=== PATIENT | female | born 1955 | race Hispanic/Latino ===

== ENCOUNTER 2019-10-31 18:46 | Emergency (ER) | payer OTHER ==
[~2019-10-31 18:46] MED LIST: AMLO10TA7 PO; ATEN100T PO; GEMF600T5 PO; LEVO100T12 PO; TRAM50TA4 PO
[2019-10-31] MEDS ORDERED: TRAMADOL HCL 50 MG TABLET ONE (19:34)
== END 2019-10-31 21:00 | disposition home or self-care (01) ==
LOC: EDH 18:46
DX: S20.219A Contusion of unspecified front wall of thorax, initial encounter (principal); S40.012A Contusion of left shoulder, initial encounter; E11.9 Type 2 diabetes mellitus without complications; I10 Essential (primary) hypertension; E78.00 Pure hypercholesterolemia, unspecified; W18.39XA Other fall on same level, initial encounter; Y93.89 Activity, other specified; Y92.89 Other specified places as the place of occurrence of the external cause; Y99.8 Other external cause status
CPT/HCPCS: 71046; 73030; 73060; 93005

== ENCOUNTER 2020-07-27 16:13 | Inpatient (IN) | payer OTHER ==
[~2020-07-27] VITALS: Ht 165.1 cm; Wt 67.4 kg
[~2020-07-27 16:13] MED LIST changes: +AMLO-258 PO; -AMLO10TA7 PO
[2020-07-27] MEDS ORDERED: DEXTROSE 50%-WATER 50 ML DISP.SYRIN IV ONE (17:05)
[2020-07-27 17:23] LABS: BASOPHILS % (AUTO) 0.4 % (0.0-5.0); EOSINOPHILS % (AUTO) 0.8 % (0.0-8.0); HEMATOCRIT 33.6 % (36-48); LYMPHOCYTES % (AUTO) 31.6 % (21.0-51.0); MEAN CORPUSCULAR HEMOGLOBIN 27.6 pg (27.0-33.0); MEAN CORPUSCULAR VOLUME 89.1 fL (79-99); MONOCYTES % (AUTO) 9.4 % (3.0-13.0); NEUTROPHILS % (AUTO) 57.5 % (40.0-77.0); PLATELET COUNT (AUTO) 567 K/uL (130-400); RED BLOOD CELL COUNT(AUTO) 3.77 MIL/uL (4.00-5.50)
[2020-07-27 17:47] LABS: ALBUMIN 3.3 g/dL (3.5-5.0); BILIRUBIN,TOTAL 0.2 mg/dL (0.2-1.0); CREATININE 1.8 mg/dL (0.5-1.5); POTASSIUM 3.7 mmol/L (3.5-5.1); TOTAL PROTEIN, SERUM 8.3 g/dL (6.0-8.3)
[2020-07-27 18:52] LABS: ERYTHROCYTE SEDIMENTATION RATE 125 MM/HR (0-30)
[2020-07-27] MEDS ORDERED: SODIUM CHLORIDE 0.9% 1000ML 1,000 ML IV SCH (22:45)
[2020-07-27] MEDS ORDERED: MORPHINE SULFATE 2 MG/ML 1ML SYG IV PRN (22:45)
[2020-07-27] MEDS ORDERED: ACETAMINOPHEN 325 MG TAB PO PRN (22:45)
[2020-07-27] MEDS ORDERED: ONDANSETRON HCL 4 MG/2 ML VIAL IV PRN (22:45)
[2020-07-27 23:47] LABS: HEMOGLOBIN A1C 10.8 % (4.0-6.0)
[2020-07-27 23:51] LABS: % IRON SATURATION 19.5 % (22-44)
[2020-07-28] MEDS ORDERED: FAMOTIDINE/PF 20 MG/2 ML VIAL IV ONE (00:26)
[2020-07-28] MEDS ORDERED: ZOSYN 3.375GM+NS 50ML 50 ML IV ONE (02:17)
[2020-07-28] MEDS: ZOSYN 3.375GM+NS 50ML 50 ML IV SCH ×3 (02:26→21:37)
[2020-07-28 02:45] VITALS: BP 143/62
[2020-07-28] MEDS ORDERED: HUM10VIA SQ (02:54)
[2020-07-28] MEDS ORDERED: ROSU40TA21 PO (02:54)
[2020-07-28] MEDS ORDERED: PIOG45TA4 PO (02:54)
[2020-07-28] MEDS ORDERED: LISI40TA4 PO (02:54)
[2020-07-28] MEDS ORDERED: SITA1TAB6 PO (02:54)
--- NOTE | 2020-07-28 02:55 | NUR ---
ADMISSION NOTE ADMIT TO ROOM 404 VIA STRETCHER FROM ER. PATIENT AWAKE, ALERT, OX3, NO SOB NO C/O PAIN AT THIS TIME, TEACH PATIENT PLAN OF CARE AND EXPECTED OUTCOME, PATIENT VERBALIZES UNDERSTANDING VIA TEACH BACK
[2020-07-28] MEDS ORDERED: DEXTROSE 5%-WATER 1,000 ML IV SCH (03:30)
[2020-07-28 06:25] LABS: BASOPHILS % (AUTO) 0.5 % (0.0-5.0); EOSINOPHILS % (AUTO) 1.5 % (0.0-8.0); HEMATOCRIT 32.7 % (36-48); LYMPHOCYTES % (AUTO) 30.2 % (21.0-51.0); MEAN CORPUSCULAR HEMOGLOBIN 27.2 pg (27.0-33.0); MEAN CORPUSCULAR HGB CONC 30.3 g/dL (32.0-36.0); MEAN CORPUSCULAR VOLUME 89.8 fL (79-99); MONOCYTES % (AUTO) 10.5 % (3.0-13.0); PLATELET COUNT (AUTO) 522 K/uL (130-400); RED BLOOD CELL COUNT(AUTO) 3.64 MIL/uL (4.00-5.50); RED CELL DISTRIBUTION WIDTH 14.3 % (11.0-15.5)
[2020-07-28 06:38] LABS: BILIRUBIN,TOTAL 0.3 mg/dL (0.2-1.0); CREATININE 1.8 mg/dL (0.5-1.5); POTASSIUM 4.6 mmol/L (3.5-5.1); TOTAL PROTEIN, SERUM 7.6 g/dL (6.0-8.3)
[2020-07-28 08:34] VITALS: BP 152/75
[2020-07-28] MEDS: FAMOTIDINE/PF 20 MG/2 ML VIAL IV SCH ×2 (09:24→21:37)
[2020-07-28] MEDS: HEPARIN SODIUM 5000UNIT/ML 1ML VIAL SQ SCH ×2 (09:25→21:39)
[2020-07-28] MEDS: INSULIN LISPRO 100 UNIT/ML 3ML SQ SCH ×3 (11:30→21:00)
--- NOTE | 2020-07-28 14:36 | NUR ---
RD NOTIFICATION Pt admitted due to foot ulcer and diabetes. Pt stated her PO intake was low prior to admission. Pt denied any unintentional recent weight loss. Pt is on an insulin regimen and tends to take her insulin with poor PO intake, which has resulted in low blood sugars. Pt's A1c is of 10.8 with an average BG of 263 as per EMR. Pt is on a 75 gm CC diet. Pt's breakfast tray was evident of 75-100% PO intake. RD recommendation: Add Heart Healthy modifier to current diet order. RD to follow with DM education. Monitor PO intake. If PO intake is <75% consider ProMod 60 ml BID. LABS: BUN 21, CREAT 1.8, GFR 30, BG 67, BG ON ADMISSION (07/27/20) 43, A1C 10.8, AVG BG 263, ALB 3.0, TOT PRO 7.6, CRP 27, IRON 62, TIBC 317, %SAT 19.5 RD will continue to monitor. As nutritional concerns arise contact dietary. Addendum: 07/28/20 at [address] Amended: Links added.
--- NOTE | 2020-07-28 15:30 | NUR ---
DEXTROSE STOPPED BS 312
[2020-07-28 16:18] VITALS: BP 126/55
--- NOTE | 2020-07-28 16:45 | NUR ---
MET W/ PATIENT AT BEDSIDE TO DISCUSS D/C PLANNING. LIVES ALONE , USES A CANE, WANTS A ROLLING WALKER, IS INDEPENDENT IN ALL ADLS, PATIENT STATES JOVITA ABREU WILL PROVIDE TRANSPORT HOME FOLLOWS AT [facility] Addendum: 07/28/20 at 1650 by BEATRIZ MALDONADO RN CM Amended: Links added.
--- NOTE | 2020-07-28 18:00 | NUR ---
BS BS 212 RECHECK IN 2HOURS
[2020-07-28 20:38] VITALS: BP 100/61
[2020-07-28] MEDS ORDERED: INSULIN GLARGINE 100 UNITS/ML 10 ML VIAL SQ SCH (21:00)
[2020-07-28 23:03] VITALS: BP 151/75
[2020-07-29 03:06] VITALS: BP 136/73
[2020-07-29] MEDS: ZOSYN 3.375GM+NS 50ML 50 ML IV SCH ×3 (05:00→20:40)
[2020-07-29 05:14] LABS: BASOPHILS % (AUTO) 1.9 % (0.0-5.0); EOSINOPHILS % (AUTO) 3.9 % (0.0-8.0); HEMATOCRIT 31.4 % (36-48); LYMPHOCYTES % (AUTO) 46.2 % (21.0-51.0); MEAN CORPUSCULAR HEMOGLOBIN 27.4 pg (27.0-33.0); MEAN CORPUSCULAR HGB CONC 30.6 g/dL (32.0-36.0); MEAN CORPUSCULAR VOLUME 89.5 fL (79-99); MONOCYTES % (AUTO) 9.4 % (3.0-13.0); NEUTROPHILS % (AUTO) 38.4 % (40.0-77.0); PLATELET COUNT (AUTO) 477 K/uL (130-400); RED BLOOD CELL COUNT(AUTO) 3.51 MIL/uL (4.00-5.50); RED CELL DISTRIBUTION WIDTH 14.5 % (11.0-15.5); WHITE BLOOD COUNT (AUTO) 4.1 K/uL (4.8-10.8)
[2020-07-29 05:21] LABS: CREATININE 1.6 mg/dL (0.5-1.5); POTASSIUM 4.3 mmol/L (3.5-5.1)
[2020-07-29] MEDS: INSULIN LISPRO 100 UNIT/ML 3ML SQ SCH ×4 (07:22→21:00)
[2020-07-29] MEDS: LEVOTHYROXINE 100 MCG TABLET PO SCH (07:25)
[2020-07-29] MEDS ORDERED: SODIUM CHLORIDE 0.9% 500ML 500 ML IV SCH (07:45)
[2020-07-29 08:00] VITALS: BP 145/70
[2020-07-29 08:31] LABS: HEMATOCRIT 31.4 % (36-48); MEAN CORPUSCULAR HEMOGLOBIN 27.6 pg (27.0-33.0); MEAN CORPUSCULAR HGB CONC 30.9 g/dL (32.0-36.0); MEAN CORPUSCULAR VOLUME 89.5 fL (79-99); RED BLOOD CELL COUNT(AUTO) 3.51 MIL/uL (4.00-5.50); RED CELL DISTRIBUTION WIDTH 14.5 % (11.0-15.5); WHITE BLOOD COUNT (AUTO) 4.6 K/uL (4.8-10.8)
[2020-07-29 08:46] LABS: INR 0.92 (0.85-1.15); PARTIAL THROMBOPLASTIN TIME 25.9 SEC (26.3-35.5)
--- NOTE | 2020-07-29 09:00 | NUR ---
CALL TO 'S OFFICE T/C PLACED TO DR. GRIMES'S OFFICE SPOKE WITH PATRICIA, INFORMED OF NEW CONSULT. WILL PAGE. GAVE HER NURSE'S [employer] PHONE NUMBER.
[2020-07-29] MEDS: FAMOTIDINE/PF 20 MG/2 ML VIAL IV SCH ×2 (09:23→20:40)
[2020-07-29] MEDS: HEPARIN SODIUM 5000UNIT/ML 1ML VIAL SQ SCH ×2 (09:31→20:57)
[2020-07-29 12:00] VITALS: BP 126/76
--- NOTE | 2020-07-29 13:06 | NUR ---
RD TEACHING NOTE DM education conducted 07/29/20. Pt was interacting and asked questions. All questions were answered. Pt was given educational material in her [place] language. Pt was encouraged to eat measure her carbohydrate choices at home and to monitor her blood sugars. RD will continue to follow Contact dietary as nutritional concerns arise. Thank you. Addendum: 07/29/20 at [address] Amended: Links added.
[2020-07-29 13:51] LABS: APPEARANCE,URINE Clear (CLEAR); BILIRUBIN,URINE Negative (NEGATIVE); COLOR,URINE Yellow (YELLOW); GLUCOSE, URINE (UA) >=1000 mg/dL (NEGATIVE); KETONES,URINE Negative (NEGATIVE); LEUKOCYTE ESTERASE ,URINE Trace (NEGATIVE); NITRATE,URINE Negative (NEGATIVE); OCCULT BLOOD,URINE Negative (NEGATIVE); PROTEIN,URINE Negative (NEGATIVE); UROBILINOGEN,URINE 0.2 mg/dL (0.2-1.0)
[2020-07-29 14:21] LABS: BACTERIA,URINE Few /HPF (None Seen)
[2020-07-29 14:22] LABS: RBC,URINE 0-1 /HPF (0-1); YEAST,URINE BUDDING Few /HPF (None Seen)
[2020-07-29 16:00] VITALS: BP 157/72
--- NOTE | 2020-07-29 16:45 | NUR ---
WOUND CONSULT DR JIMENEZ WOUND CONSULTED. REQUESTS TO BE TAKEN OFF THE CARE DUE TO PT ALREADY HAVING [facility] INVOLOVED.
[2020-07-29] MEDS: DIPH,PERTUSS(ACELL),TET VAC/PF 0.5 ML VIAL IM SCH (17:13)
[2020-07-29 19:20] VITALS: BP 149/67
--- NOTE | 2020-07-29 20:00 | NUR ---
PATIENT RESTING IN BED. DENIES PAIN TO LE. DRESSING CDI. TOLERATING IV ABX. NO S/S OF ADVERSE REACTIONS. CALL LIGHT WITHIN REACH. WILL CONTINUE TO MONITOR.
[2020-07-29] MEDS: INSULIN GLARGINE 100 UNITS/ML 10 ML VIAL SQ SCH (21:00)
[2020-07-29 23:42] VITALS: BP 148/81
[2020-07-30 03:40] VITALS: BP 153/69
[2020-07-30] MEDS: INSULIN LISPRO 100 UNIT/ML 3ML SQ SCH ×6 (06:03→20:30)
[2020-07-30 06:11] LABS: EOSINOPHILS % (AUTO) 4.5 % (0.0-8.0); HEMATOCRIT 32.1 % (36-48); LYMPHOCYTES % (AUTO) 47.3 % (21.0-51.0); MEAN CORPUSCULAR HEMOGLOBIN 27.5 pg (27.0-33.0); MEAN CORPUSCULAR HGB CONC 30.8 g/dL (32.0-36.0); MEAN CORPUSCULAR VOLUME 89.2 fL (79-99); PLATELET COUNT (AUTO) 508 K/uL (130-400); RED CELL DISTRIBUTION WIDTH 14.3 % (11.0-15.5); WHITE BLOOD COUNT (AUTO) 4.9 K/uL (4.8-10.8)
[2020-07-30] MEDS: LEVOTHYROXINE 100 MCG TABLET PO SCH (06:23)
[2020-07-30] MEDS: ZOSYN 3.375GM+NS 50ML 50 ML IV SCH ×3 (06:23→20:27)
[2020-07-30 06:26] LABS: CREATININE 1.4 mg/dL (0.5-1.5); POTASSIUM 4.5 mmol/L (3.5-5.1)
[2020-07-30 08:00] VITALS: BP 147/85
[2020-07-30] MEDS: FAMOTIDINE/PF 20 MG/2 ML VIAL IV SCH ×2 (08:44→20:27)
[2020-07-30] MEDS: HEPARIN SODIUM 5000UNIT/ML 1ML VIAL SQ SCH ×2 (08:45→20:29)
[2020-07-30 12:00] VITALS: BP 169/80
[2020-07-30] MEDS: DIPH,PERTUSS(ACELL),TET VAC/PF 0.5 ML VIAL IM SCH (14:00)
[2020-07-30 16:00] VITALS: BP 166/75
[2020-07-30 19:47] VITALS: BP 170/79
[2020-07-30] MEDS: NIFEDIPINE 10 MG CAP PO SCH (20:28)
[2020-07-30] MEDS: INSULIN GLARGINE 100 UNITS/ML 10 ML VIAL SQ SCH (20:30)
[2020-07-30 23:55] VITALS: BP 128/74
[2020-07-31 04:21] VITALS: BP 130/56
[2020-07-31] MEDS: ZOSYN 3.375GM+NS 50ML 50 ML IV SCH ×3 (04:24→21:05)
[2020-07-31] MEDS: LEVOTHYROXINE 100 MCG TABLET PO SCH (05:49)
[2020-07-31 06:17] LABS: BASOPHILS % (AUTO) 1.7 % (0.0-5.0); EOSINOPHILS % (AUTO) 5.4 % (0.0-8.0); HEMATOCRIT 31.8 % (36-48); LYMPHOCYTES % (AUTO) 50.9 % (21.0-51.0); MEAN CORPUSCULAR HEMOGLOBIN 27.5 pg (27.0-33.0); MEAN CORPUSCULAR HGB CONC 30.8 g/dL (32.0-36.0); MEAN CORPUSCULAR VOLUME 89.3 fL (79-99); MONOCYTES % (AUTO) 6.9 % (3.0-13.0); NEUTROPHILS % (AUTO) 34.9 % (40.0-77.0); PLATELET COUNT (AUTO) 467 K/uL (130-400); RED BLOOD CELL COUNT(AUTO) 3.56 MIL/uL (4.00-5.50); WHITE BLOOD COUNT (AUTO) 4.8 K/uL (4.8-10.8)
[2020-07-31] MEDS: INSULIN LISPRO 100 UNIT/ML 3ML SQ SCH ×7 (06:38→21:12)
[2020-07-31 06:44] LABS: BILIRUBIN,TOTAL 0.3 mg/dL (0.2-1.0); CREATININE 1.4 mg/dL (0.5-1.5); POTASSIUM 3.9 mmol/L (3.5-5.1); TOTAL PROTEIN, SERUM 7.6 g/dL (6.0-8.3)
[2020-07-31] MEDS: DIPH,PERTUSS(ACELL),TET VAC/PF 0.5 ML VIAL IM SCH (07:22)
[2020-07-31 08:00] VITALS: BP 139/60
[2020-07-31] MEDS: NIFEDIPINE 10 MG CAP PO SCH ×3 (08:23→21:06)
[2020-07-31] MEDS: FAMOTIDINE/PF 20 MG/2 ML VIAL IV SCH ×2 (08:23→21:06)
[2020-07-31] MEDS: HEPARIN SODIUM 5000UNIT/ML 1ML VIAL SQ SCH ×2 (08:28→21:12)
[2020-07-31 11:48] VITALS: BP 136/65
[2020-07-31] MEDS: ACETYLCYSTEINE 600 MG CAPSULE PO SCH ×2 (15:40→21:05)
[2020-07-31 16:00] VITALS: BP 119/61
[2020-07-31 20:25] VITALS: BP 131/63
--- NOTE | 2020-07-31 21:05 | NUR ---
MEDS SHIFT ASSESSMENT DONE, PLEASE REFER TO CHART. DUE MEDS ADMINISTERED, TOLERATED WELL.INSTRUCTED TO BE NPO POST MN. PT VERBALIZES UNDERSTANDING. CALL LIGHT WITHIN REACH. WILL MONITOR PT. Addendum: 07/31/20 at 2226 by JOHNNY VALDES RN RN Amended: Links added.
[2020-07-31] MEDS: INSULIN GLARGINE 100 UNITS/ML 10 ML VIAL SQ SCH (21:11)
[2020-07-31 23:49] VITALS: BP 140/71
[2020-08-01] VITALS (11 sets, daily range): BP systolic 123–147; BP diastolic 53–78
--- NOTE | 2020-08-01 01:44 | NUR ---
ROUNDS PT RESTING WELL, FAIRLY ASLEEP. NO DISTRESS NOTED. KEPT RESTED AND UNDISTURBED. KEPT NPO. WILL CONTINUE TO MONITOR. CALL LIGHT WITHIN REACH.
[2020-08-01] MEDS: ZOSYN 3.375GM+NS 50ML 50 ML IV SCH ×3 (04:43→20:16)
--- NOTE | 2020-08-01 04:55 | NUR ---
MEDS POLICY DIRECTOR IN TO DRAW BLOOD. IVF OF NS AND ZOSYN IV HUNG WITH NEW TUBINGS. SECOND PIV INSERTED TO LAC,FOR PROCEDURE, SALINE LOCKED. PT TOLERATED INSERTION WELL. KEPT PT NPO. KEPT COMFORTABLE. FOR MORE CARE.
[2020-08-01 04:57] LABS: BASOPHILS % (AUTO) 1.8 % (0.0-5.0); EOSINOPHILS % (AUTO) 6.4 % (0.0-8.0); HEMATOCRIT 32.4 % (36-48); LYMPHOCYTES % (AUTO) 53.5 % (21.0-51.0); MEAN CORPUSCULAR HEMOGLOBIN 27.3 pg (27.0-33.0); MEAN CORPUSCULAR HGB CONC 30.6 g/dL (32.0-36.0); MEAN CORPUSCULAR VOLUME 89.3 fL (79-99); MONOCYTES % (AUTO) 6.8 % (3.0-13.0); NEUTROPHILS % (AUTO) 31.3 % (40.0-77.0); PLATELET COUNT (AUTO) 447 K/uL (130-400); RED BLOOD CELL COUNT(AUTO) 3.63 MIL/uL (4.00-5.50); RED CELL DISTRIBUTION WIDTH 14.1 % (11.0-15.5); WHITE BLOOD COUNT (AUTO) 5.1 K/uL (4.8-10.8)
[2020-08-01 05:15] LABS: INR 0.92 (0.85-1.15); PARTIAL THROMBOPLASTIN TIME 25.2 SEC (26.3-35.5)
[2020-08-01 05:33] LABS: CARBON DIOXIDE 27 mmol/L (21-32); CHLORIDE 102 mmol/L (101-111); CREATINE KINASE, TOTAL 30 U/L (21-232); CREATININE 1.4 mg/dL (0.5-1.5); GLOMERULAR FILTR. RATE CALC 40 mL/min (>60); GLUCOSE,RANDOM 163 mg/dL (70-105); MYOGLOBIN 27 ng/mL (10-92); POTASSIUM 3.8 mmol/L (3.5-5.1); SODIUM SERUM 136 mmol/L (136-145); TROPONIN I < 0.04 ng/mL (0.00-0.06); UREA NITROGEN, BLOOD 16 mg/dL (7-18)
[2020-08-01] MEDS: LEVOTHYROXINE 100 MCG TABLET PO SCH (06:18)
[2020-08-01] MEDS: INSULIN LISPRO 100 UNIT/ML 3ML SQ SCH ×8 (06:29→20:19)
[2020-08-01] MEDS: NIFEDIPINE 10 MG CAP PO SCH ×3 (08:33→20:17)
[2020-08-01] MEDS: ACETYLCYSTEINE 600 MG CAPSULE PO SCH ×2 (08:34→20:17)
[2020-08-01] MEDS: HEPARIN SODIUM 5000UNIT/ML 1ML VIAL SQ SCH ×2 (08:34→20:18)
[2020-08-01] MEDS: FAMOTIDINE/PF 20 MG/2 ML VIAL IV SCH ×2 (08:34→20:17)
[2020-08-01] MEDS ORDERED: SODIUM CHLORIDE 0.9% 500ML 1,000 ML IV SCH (09:00)
[2020-08-01] MEDS ORDERED: HEPARIN SODIUM 1000UNIT/ML 10ML VIAL ONE (09:26)
[2020-08-01] MEDS ORDERED: NITROGLYCERIN 2 MG/VIAL VIAL IV ONE (09:26)
[2020-08-01] MEDS ORDERED: IODIXANOL 320 MG/ML 100 ML VIAL ONE (09:26)
[2020-08-01] MEDS ORDERED: MIDAZOLAM HCL 1 MG/ML 2ML VIAL ONE (09:27)
[2020-08-01] MEDS ORDERED: FENTANYL CITRATE PF 50 MCG/1 ML 2ML VIAL ONE (09:27)
[2020-08-01] MEDS ORDERED: LIDOCAINE HCL 2% 20ML ONE (09:27)
[2020-08-01] MEDS ORDERED: SODIUM CHLORIDE 0.9% 1000ML 1,000 ML IV SCH (10:45)
[2020-08-01] MEDS ORDERED: ASPIRIN 325MG EC TAB 325 MG TABLET.DR PO ONE (10:58)
[2020-08-01] MEDS ORDERED: CLOPIDOGREL BISULFATE 300 MG TAB ONE (10:59)
[2020-08-01] MEDS: ATORVASTATIN CALCIUM 40 MG TABLET PO SCH (13:45)
[2020-08-01] MEDS: DIPH,PERTUSS(ACELL),TET VAC/PF 0.5 ML VIAL IM SCH (14:00)
[2020-08-01] MEDS: INSULIN GLARGINE 100 UNITS/ML 10 ML VIAL SQ SCH (20:19)
--- NOTE | 2020-08-01 20:20 | NUR ---
MEDS SHIFT ASSESSMENT DONE, PLEASE REFER TO CHART. DUE MEDS ADMINISTERED, TOLERATED WELL. KEPT COMFORTABLE IN BED. CALL LIGHT WITHIN REACH. WILL MONITOR PT. Addendum: 08/01/20 at 2145 by JOHNNY VALDES RN RN Amended: Links added.
[2020-08-02] VITALS (20 sets, daily range): BP systolic 134–182; BP diastolic 54–118
--- NOTE | 2020-08-02 02:00 | NUR ---
ROUNDS PT RESTING WELL, FAIRLY ASLEEP. NO DISTRESS NOTED. KEPT RESTED AND COMFORTABLE. CALL LIGHT WITHIN REACH. WILL CONTINUE TO MONITOR.
[2020-08-02 03:51] LABS: BASOPHILS % (AUTO) 1.2 % (0.0-5.0); EOSINOPHILS % (AUTO) 5.3 % (0.0-8.0); HEMATOCRIT 31.3 % (36-48); LYMPHOCYTES % (AUTO) 39.4 % (21.0-51.0); MEAN CORPUSCULAR HEMOGLOBIN 27.5 pg (27.0-33.0); MEAN CORPUSCULAR HGB CONC 30.7 g/dL (32.0-36.0); MEAN CORPUSCULAR VOLUME 89.7 fL (79-99); MONOCYTES % (AUTO) 7.4 % (3.0-13.0); NEUTROPHILS % (AUTO) 46.5 % (40.0-77.0); PLATELET COUNT (AUTO) 425 K/uL (130-400); RED BLOOD CELL COUNT(AUTO) 3.49 MIL/uL (4.00-5.50); RED CELL DISTRIBUTION WIDTH 14.4 % (11.0-15.5); WHITE BLOOD COUNT (AUTO) 6.1 K/uL (4.8-10.8)
[2020-08-02] MEDS: ZOSYN 3.375GM+NS 50ML 50 ML IV SCH ×3 (04:03→19:58)
[2020-08-02 04:09] LABS: CREATININE 1.3 mg/dL (0.5-1.5)
[2020-08-02] MEDS: INSULIN LISPRO 100 UNIT/ML 3ML SQ SCH ×7 (05:41→20:39)
[2020-08-02] MEDS: LEVOTHYROXINE 100 MCG TABLET PO SCH (05:41)
--- NOTE | 2020-08-02 05:43 | NUR ---
NPO DR KELLY IN TO SEE PT. PROOF INSPECTOR MADE AWARE OF NEW ORDERS, STATED TO PLACE PT NPO FOR SX TODAY. PT MADE AWARE AND UNDERSTANDS NPO STATUS. PLEASE REFER TO CPOE FOR NEW ORDERS.
--- NOTE | 2020-08-02 06:15 | NUR ---
SHOWER PCP IN AND ASSISTED PT TO SHOWER, PT TOLERATED ACTIVITY WELL. KEPT NPO FOR SX. FOR MORE CARE AND MANAGEMENT.
[2020-08-02] MEDS: ATORVASTATIN CALCIUM 40 MG TABLET PO SCH (09:00)
[2020-08-02] MEDS: CLOPIDOGREL BISULFATE 75 MG TAB PO SCH (09:00)
[2020-08-02] MEDS: ASPIRIN 81 MG EC TAB PO SCH (09:00)
[2020-08-02] MEDS: ACETYLCYSTEINE 600 MG CAPSULE PO SCH ×2 (09:00→19:57)
[2020-08-02] MEDS: HEPARIN SODIUM 5000UNIT/ML 1ML VIAL SQ SCH ×2 (09:00→20:00)
[2020-08-02] MEDS: NIFEDIPINE 10 MG CAP PO SCH ×3 (10:19→19:57)
[2020-08-02] MEDS: FAMOTIDINE/PF 20 MG/2 ML VIAL IV SCH ×2 (10:19→19:58)
[2020-08-02] MEDS: DIPH,PERTUSS(ACELL),TET VAC/PF 0.5 ML VIAL IM SCH (14:00)
[2020-08-02] MEDS ORDERED: SODIUM CHLORIDE 0.9% 1000ML 1,000 ML IV ONE (14:01)
[2020-08-02] MEDS ORDERED: MIDAZOLAM HCL 1 MG/ML 2ML VIAL ONE (16:09)
[2020-08-02] MEDS ORDERED: FENTANYL CITRATE PF 50 MCG/1 ML 2ML VIAL ONE (16:09)
[2020-08-02] MEDS ORDERED: PROPOFOL 10 MG/ML 20ML VIAL IV ONE ×2 (16:18→16:59)
[2020-08-02] MEDS ORDERED: BUPIVACAINE/PF 0.5% 30ML VIAL ONE (16:19)
[2020-08-02] MEDS ORDERED: LIDOCAINE HCL 1% 20 ML VIAL ONE (16:19)
[2020-08-02] MEDS ORDERED: PHARMACY COMMUNICATION MISC SCH (18:00)
--- NOTE | 2020-08-02 19:00 | NUR ---
CARE Received in bed,pt aao x 3,denies pain or discomfort.Dressing to left foot dry and intact.Pt has surgical shoe on.
[2020-08-02] MEDS: INSULIN GLARGINE 100 UNITS/ML 10 ML VIAL SQ SCH (20:39)
[2020-08-02] MEDS ORDERED: CLOPIDOGREL BISULFATE 75 MG TAB PO ONE (21:00)
[2020-08-02] MEDS ORDERED: ASPIRIN 81 MG EC TAB PO ONE (21:00)
[2020-08-03 03:23] VITALS: BP 132/67
[2020-08-03] MEDS: LEVOTHYROXINE 100 MCG TABLET PO SCH (04:56)
[2020-08-03] MEDS: ZOSYN 3.375GM+NS 50ML 50 ML IV SCH (04:56)
[2020-08-03] MEDS: INSULIN LISPRO 100 UNIT/ML 3ML SQ SCH ×7 (05:49→20:28)
[2020-08-03 06:11] LABS: BASOPHILS % (AUTO) 1.1 % (0.0-5.0); EOSINOPHILS % (AUTO) 3.6 % (0.0-8.0); HEMATOCRIT 32.7 % (36-48); LYMPHOCYTES % (AUTO) 31.8 % (21.0-51.0); MEAN CORPUSCULAR HEMOGLOBIN 27.5 pg (27.0-33.0); MEAN CORPUSCULAR HGB CONC 30.9 g/dL (32.0-36.0); MEAN CORPUSCULAR VOLUME 89.1 fL (79-99); MONOCYTES % (AUTO) 10.4 % (3.0-13.0); NEUTROPHILS % (AUTO) 52.9 % (40.0-77.0); PLATELET COUNT (AUTO) 402 K/uL (130-400); RED BLOOD CELL COUNT(AUTO) 3.67 MIL/uL (4.00-5.50); RED CELL DISTRIBUTION WIDTH 14.3 % (11.0-15.5); WHITE BLOOD COUNT (AUTO) 6.4 K/uL (4.8-10.8)
[2020-08-03 06:20] LABS: CREATININE 1.2 mg/dL (0.5-1.5); POTASSIUM 3.8 mmol/L (3.5-5.1)
[2020-08-03 08:00] VITALS: BP 170/75
[2020-08-03] MEDS: ASPIRIN 81 MG EC TAB PO SCH (08:38)
[2020-08-03] MEDS: ACETYLCYSTEINE 600 MG CAPSULE PO SCH ×2 (08:38→20:12)
[2020-08-03] MEDS: ATORVASTATIN CALCIUM 40 MG TABLET PO SCH (08:39)
[2020-08-03] MEDS: CLOPIDOGREL BISULFATE 75 MG TAB PO SCH (08:39)
[2020-08-03] MEDS: NIFEDIPINE 10 MG CAP PO SCH ×3 (08:39→20:13)
[2020-08-03] MEDS: FAMOTIDINE/PF 20 MG/2 ML VIAL IV SCH ×2 (08:50→20:13)
[2020-08-03] MEDS: ACETAMINOPHEN 325 MG TAB PO PRN ×2 (09:29→13:57)
--- NOTE | 2020-08-03 10:07 | NUR ---
CM NOTE/DC PLANNING MET WITH PATIENT AT BEDSIDE TO DISCUSS DC PLANNING. NOTED OK BY DR. KELLY FOR WEIGHT BEARING TO LEFT FOOT WITH BOOT ON, PATIENT AWARE AND STATED SHE AMBULATED TO BATHROOM THIS AM WITHOUT ANY PROBLEMS OR DISTRESS. PATIENT CONFIRMED NO INSURANCE. INFORMED PATIENT A FAMILY MEMBER OR FRIEND OF HER CHOICE WILL BE NEEDED TO ASSIST WITH WOUND CARE, PATIENT VERBALIZED UNDERSTANDING AND STATES SHE ALREADY HAS SOMEONE IN MIND AND WILL ASK FOR HELP. PATIENT LIVES ALONE AND RECOMMENDED TO STAY WITH SOMEONE OR FOR SOMEONE TO STAY WITH HER TO ASSIST WITH CARE/NEEDS, PATIENT VERBALIZED UNDERSTANDING. DR. ANGELA JAIME MADE AWARE OF PLAN. PRIMARY NURSE, PAULA RIOS, OUT TO LUNCH, WILL INFORM WHEN RETURNS.
[2020-08-03] MEDS: HEPARIN SODIUM 5000UNIT/ML 1ML VIAL SQ SCH ×2 (10:22→20:14)
[2020-08-03 12:00] VITALS: BP 123/82
[2020-08-03] MEDS: AMOXICILLIN 500 MG CAPSULE PO SCH ×2 (14:00→22:50)
[2020-08-03 16:00] VITALS: BP 128/90
[2020-08-03] MEDS: INSULIN GLARGINE 100 UNITS/ML 10 ML VIAL SQ SCH (20:17)
[2020-08-03 20:20] VITALS: BP 143/59
[2020-08-04 00:24] VITALS: BP 123/53
[2020-08-04] MEDS ORDERED: TRAMADOL HCL 50 MG TABLET PO PRN (04:15)
[2020-08-04 04:16] VITALS: BP 135/68
[2020-08-04 05:23] LABS: BASOPHILS % (AUTO) 0.8 % (0.0-5.0); LYMPHOCYTES % (AUTO) 32.8 % (21.0-51.0); MEAN CORPUSCULAR HEMOGLOBIN 27.6 pg (27.0-33.0); MONOCYTES % (AUTO) 7.5 % (3.0-13.0); NEUTROPHILS % (AUTO) 55.8 % (40.0-77.0); PLATELET COUNT (AUTO) 368 K/uL (130-400); RED BLOOD CELL COUNT(AUTO) 3.37 MIL/uL (4.00-5.50); RED CELL DISTRIBUTION WIDTH 14.5 % (11.0-15.5); WHITE BLOOD COUNT (AUTO) 7.3 K/uL (4.8-10.8)
[2020-08-04 05:46] LABS: CREATININE 1.3 mg/dL (0.5-1.5); MAGNESIUM 1.9 mg/dL (1.80-2.40); POTASSIUM 3.8 mmol/L (3.5-5.1)
[2020-08-04] MEDS: LEVOTHYROXINE 100 MCG TABLET PO SCH (06:06)
[2020-08-04] MEDS: AMOXICILLIN 500 MG CAPSULE PO SCH ×2 (06:06→14:54)
[2020-08-04] MEDS: INSULIN LISPRO 100 UNIT/ML 3ML SQ SCH ×6 (06:15→17:21)
[2020-08-04] MEDS: NIFEDIPINE 10 MG CAP PO SCH ×2 (09:26→14:54)
[2020-08-04] MEDS: ATORVASTATIN CALCIUM 40 MG TABLET PO SCH (09:26)
[2020-08-04] MEDS: ASPIRIN 81 MG EC TAB PO SCH (09:26)
[2020-08-04] MEDS: ACETYLCYSTEINE 600 MG CAPSULE PO SCH (09:26)
[2020-08-04] MEDS: CLOPIDOGREL BISULFATE 75 MG TAB PO SCH (09:26)
[2020-08-04] MEDS: FAMOTIDINE/PF 20 MG/2 ML VIAL IV SCH (09:27)
[2020-08-04] MEDS: HEPARIN SODIUM 5000UNIT/ML 1ML VIAL SQ SCH (09:37)
[2020-08-04 09:49] VITALS: BP 145/64
--- NOTE | 2020-08-04 12:28 | NUR ---
RD FOLLOW UP Pt is currently on a heart healthy diet with a 75 gm modifier. As per RN pt is consuming 75% of meals. Pt has left great toe incision due to amputation. Incision is dry and intact. RD RECOMMENDATION: Continue current diet order Monitor PO intake. If intake falls <75% consider Glucerna BID. Monitor Incision site. LABS: GFR 44, BG 157, MG 1.9, TOT CA 9.6, CRP 27, ALB 3.0 LBM: 08/02/20 RD will continue to monitor pt's po intake Contact as nutritional concerns arise. Addendum: 08/04/20 at [address] Amended: Links added.
[2020-08-04 12:42] VITALS: BP 122/53
[2020-08-04 16:35] VITALS: BP 130/63
--- NOTE | 2020-08-04 18:00 | NUR ---
DISCHARGE SUMMARY WAS RE VIEW WITH PT. 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 BOOT AT ALL TIMES EXPLAIN TO PT IN [place] AND IS AWARE OF MEDICATION AND INSULINS AND DRSarwat APPT. AND IMPORTANCE TO TAKE HER ASA , AND PLAVIX PER DRSarwat ORDERS . SL TO HER RFA AND LAC WAS DC , WITH NO REDNESS TO SITE, A SM PRESSURE DRSG APPLICATION . ON .
== END 2020-08-04 18:00 | disposition home or self-care (01) | DRG 253 ==
LOC: EDH 16:13 → EDHIP 16:14 → 4AH 07-28 02:20
PROVIDERS: ADMIT Hospitalist; ATTEND Hospitalist
PROC: 047L3DZ Dilation of Left Femoral Artery with Intraluminal Device, Percutaneous Approach (ICD-10-PCS; 2020-08-01)
PROC: B41G1ZZ Fluoroscopy of Left Lower Extremity Arteries using Low Osmolar Contrast (ICD-10-PCS; 2020-08-01)
PROC: B41F1ZZ Fluoroscopy of Right Lower Extremity Arteries using Low Osmolar Contrast (ICD-10-PCS; 2020-08-01)
PROC: 0Y6Q0Z1 Detachment at Left 1st Toe, High, Open Approach (ICD-10-PCS; principal; 2020-08-02 16:16)
DX: E11.52 Type 2 diabetes mellitus with diabetic peripheral angiopathy with gangrene (principal); L03.90 Cellulitis, unspecified; M86.10 Other acute osteomyelitis, unspecified site; N17.9 Acute kidney failure, unspecified; I96 Gangrene, not elsewhere classified; E11.621 Type 2 diabetes mellitus with foot ulcer; E11.649 Type 2 diabetes mellitus with hypoglycemia without coma; E11.65 Type 2 diabetes mellitus with hyperglycemia; D64.9 Anemia, unspecified; E03.9 Hypothyroidism, unspecified; E11.22 Type 2 diabetes mellitus with diabetic chronic kidney disease; E11.69 Type 2 diabetes mellitus with other specified complication; E78.00 Pure hypercholesterolemia, unspecified; E78.5 Hyperlipidemia, unspecified; H66.90 Otitis media, unspecified, unspecified ear; L97.529 Non-pressure chronic ulcer of other part of left foot with unspecified severity; M77.30 Calcaneal spur, unspecified foot; N18.30 Chronic kidney disease, stage 3 unspecified; Z79.4 Long term (current) use of insulin; Z79.890 Hormone replacement therapy; Z83.3 Family history of diabetes mellitus; Z82.0 Family history of epilepsy and other diseases of the nervous system; Z82.49 Family history of ischemic heart disease and other diseases of the circulatory system
CPT/HCPCS: 36415; 37226; 71045; 73620; 73718; 75716; 75774; 76770; 80048; 80053; 81001; 82550; 82948; 83036; 83540; 83550; 83605; 83735; 83874; 84100; 84145; 84484; 85025; 85027; 85610; 85651; 85730; 86140; 87040; 87070; 87076; 87077; 87186; 90715; 93005; 93306; 93356; 93926; 93970; 99156; 99157; C1769; C1893; C1894; G0378; J1644; J2250; J2543; J2704; J3010; J3490; J7030; J7040; J7070; Q9967

== ENCOUNTER 2020-08-17 18:20 | Emergency (ER) | payer OTHER ==
[~2020-08-17 18:20] MED LIST changes: -AMLO-258 PO; -ATEN100T PO; -GEMF600T5 PO; +LISI40TA4 PO; +PIOG45TA4 PO; +ROSU40TA21 PO; +SITA1TAB6 PO; -TRAM50TA4 PO
== END 2020-08-17 21:00 | disposition home or self-care (01) ==
LOC: EDH 18:20
DX: Z48.01 Encounter for change or removal of surgical wound dressing (principal); E78.00 Pure hypercholesterolemia, unspecified; E11.9 Type 2 diabetes mellitus without complications; I10 Essential (primary) hypertension; E07.9 Disorder of thyroid, unspecified; Z98.890 Other specified postprocedural states
CPT/HCPCS: 99281

== ENCOUNTER 2021-01-10 18:18 | Inpatient (IN) | payer OTHER ==
[~2021-01-10] VITALS: Ht 170.2 cm; Wt 73.5 kg
[~2021-01-10 18:18] MED LIST changes: -LISI40TA4 PO; +LISI40TA9 PO
[2021-01-10 19:13] LABS: BASOPHILS % (AUTO) 0.5 % (0.0-5.0); EOSINOPHILS % (AUTO) 1.7 % (0.0-8.0); HEMATOCRIT 33.3 % (36-48); LYMPHOCYTES % (AUTO) 36.3 % (21.0-51.0); MEAN CORPUSCULAR HEMOGLOBIN 28.5 pg (27.0-33.0); MEAN CORPUSCULAR HGB CONC 31.5 g/dL (32.0-36.0); MEAN CORPUSCULAR VOLUME 90.5 fL (79-99); MONOCYTES % (AUTO) 8.1 % (3.0-13.0); NEUTROPHILS % (AUTO) 53.3 % (40.0-77.0); PLATELET COUNT (AUTO) 273 K/uL (130-400); RED BLOOD CELL COUNT(AUTO) 3.68 MIL/uL (4.00-5.50); RED CELL DISTRIBUTION WIDTH 14.1 % (11.0-15.5); WHITE BLOOD COUNT (AUTO) 8.2 K/uL (4.8-10.8)
[2021-01-10 19:26] LABS: INR 0.91 (0.85-1.15)
[2021-01-10 19:28] LABS: PARTIAL THROMBOPLASTIN TIME 24.2 SEC (26.3-35.5)
[2021-01-10 19:29] LABS: ALBUMIN 4.3 g/dL (3.5-5.0); BILIRUBIN,TOTAL 0.4 mg/dL (0.2-1.0); CREATININE 1.9 mg/dL (0.5-1.5); POTASSIUM 3.7 mmol/L (3.5-5.1); TOTAL PROTEIN, SERUM 8.9 g/dL (6.0-8.3)
[2021-01-10] MEDS ORDERED: ZOSYN 3.375GM+NS 50ML 50 ML IV ONE (19:29)
[2021-01-10] MEDS ORDERED: VANCOMYCIN 1GM+NS 250ML 250 ML IV ONE (19:29)
[2021-01-10 19:34] LABS: APPEARANCE,URINE Clear (CLEAR); BILIRUBIN,URINE Negative (NEGATIVE); COLOR,URINE Yellow (YELLOW); GLUCOSE, URINE (UA) >=1000 mg/dL (NEGATIVE); KETONES,URINE Trace mg/dL (NEGATIVE); LEUKOCYTE ESTERASE ,URINE Trace (NEGATIVE); NITRATE,URINE Negative (NEGATIVE); OCCULT BLOOD,URINE Trace (NEGATIVE); PROTEIN,URINE Trace mg/dL (NEGATIVE)
[2021-01-10 19:39] LABS: BACTERIA,URINE Few /HPF (None Seen); RBC,URINE 0-1 /HPF (0-1); SQUAMOUS EPITHELIAL CELL,UR Few /HPF (0-2)
[2021-01-10 19:41] LABS: HYALINE CASTS, URINE 0-1 /LPF (0-1 /LPF)
[2021-01-10] MEDS ORDERED: MORPHINE SULFATE 2 MG/ML 1ML SYG IV PRN (21:45)
[2021-01-10] MEDS ORDERED: ONDANSETRON HCL 4 MG/2 ML VIAL IV PRN (21:45)
[2021-01-10] MEDS ORDERED: VANCOMYCIN PROTOCOL PER PHARMACY IV PRN (21:45)
[2021-01-10] MEDS ORDERED: ACETAMINOPHEN 325 MG TAB PO PRN ×2 (21:45)
[2021-01-10] MEDS ORDERED: GLUCAGON 1MG KIT 1 MG ML IM PRN (22:00)
[2021-01-10] MEDS ORDERED: DEXTROSE 50%-WATER 50 ML DISP.SYRIN IV PRN (22:00)
[2021-01-10 22:16] LABS: % IRON SATURATION 6.7 % (22-44)
[2021-01-10 22:17] LABS: HEMOGLOBIN A1C 9.6 % (4.0-6.0)
[2021-01-11] VITALS (7 sets, daily range): BP systolic 86–167; BP diastolic 38–69
[2021-01-11] MEDS: ZOSYN 3.375GM+NS 50ML 50 ML IV SCH ×3 (05:38→20:47)
[2021-01-11 05:55] LABS: BASOPHILS % (AUTO) 0.5 % (0.0-5.0); EOSINOPHILS % (AUTO) 4.4 % (0.0-8.0); HEMATOCRIT 31.6 % (36-48); LYMPHOCYTES % (AUTO) 47.7 % (21.0-51.0); MEAN CORPUSCULAR HEMOGLOBIN 28.1 pg (27.0-33.0); MEAN CORPUSCULAR HGB CONC 31.3 g/dL (32.0-36.0); MEAN CORPUSCULAR VOLUME 89.8 fL (79-99); MONOCYTES % (AUTO) 8.7 % (3.0-13.0); NEUTROPHILS % (AUTO) 38.5 % (40.0-77.0); PLATELET COUNT (AUTO) 258 K/uL (130-400); RED BLOOD CELL COUNT(AUTO) 3.52 MIL/uL (4.00-5.50); RED CELL DISTRIBUTION WIDTH 14.3 % (11.0-15.5); WHITE BLOOD COUNT (AUTO) 6.1 K/uL (4.8-10.8)
[2021-01-11 06:14] LABS: ALBUMIN 3.6 g/dL (3.5-5.0); BILIRUBIN,TOTAL 0.3 mg/dL (0.2-1.0); CREATININE 1.5 mg/dL (0.5-1.5); POTASSIUM 4.1 mmol/L (3.5-5.1); TOTAL PROTEIN, SERUM 7.8 g/dL (6.0-8.3)
[2021-01-11 06:51] LABS: ERYTHROCYTE SEDIMENTATION RATE 63 MM/HR (0-30)
[2021-01-11] MEDS: FAMOTIDINE/PF 20 MG/2 ML VIAL IV SCH (08:56)
[2021-01-11] MEDS ORDERED: POTASSIUM CHLORIDE 10% ELIXIR 20 MEQ/15 ML UDCUP PO PRN (11:00)
[2021-01-11] MEDS ORDERED: GLUCAGON 1MG KIT 1 MG ML IM PRN (11:00)
[2021-01-11] MEDS ORDERED: POTASSIUM CHLORIDE 20MEQ/100ML 100 ML IV PRN ×2 (11:00)
[2021-01-11] MEDS ORDERED: DEXTROSE 50%-WATER 50 ML DISP.SYRIN IV PRN (11:00)
[2021-01-11] MEDS ORDERED: POTASSIUM CHLORIDE 20 MEQ ERTAB PO PRN (11:00)
[2021-01-11] MEDS ORDERED: CLOP75TA32 PO (11:20)
[2021-01-11] MEDS ORDERED: ASPI-1443 PO (11:20)
[2021-01-11] MEDS: INSULIN HUMULIN R 100 UNIT/ML 3ML SQ SCH ×3 (11:30→20:49)
[2021-01-11] MEDS: VANCOMYCIN 1GM+NS 250ML 250 ML IV SCH (18:03)
[2021-01-11] MEDS: INSULIN GLARGINE 100 UNITS/ML 10 ML VIAL SQ SCH (20:48)
[2021-01-12 03:20] VITALS: BP 103/53
[2021-01-12] MEDS: ZOSYN 3.375GM+NS 50ML 50 ML IV SCH ×3 (04:56→20:50)
[2021-01-12 05:06] LABS: BASOPHILS % (AUTO) 0.6 % (0.0-5.0); EOSINOPHILS % (AUTO) 9.9 % (0.0-8.0); HEMATOCRIT 31.5 % (36-48); LYMPHOCYTES % (AUTO) 45.4 % (21.0-51.0); MEAN CORPUSCULAR HGB CONC 30.8 g/dL (32.0-36.0); MONOCYTES % (AUTO) 9.7 % (3.0-13.0); NEUTROPHILS % (AUTO) 34.4 % (40.0-77.0); PLATELET COUNT (AUTO) 250 K/uL (130-400); RED BLOOD CELL COUNT(AUTO) 3.46 MIL/uL (4.00-5.50); WHITE BLOOD COUNT (AUTO) 4.7 K/uL (4.8-10.8)
[2021-01-12 05:17] LABS: PLATELET MORPHOLOGY PLT CLUMPS PRESENT
[2021-01-12 05:23] LABS: ALBUMIN 3.3 g/dL (3.5-5.0); BILIRUBIN,TOTAL 0.3 mg/dL (0.2-1.0); CREATININE 1.7 mg/dL (0.5-1.5); CRP QUANTITATIVE 5.4 mg/L (0.00-9.0); PHOSPHORUS 3.4 mg/dL (2.5-4.9); POTASSIUM 4.1 mmol/L (3.5-5.1); TOTAL PROTEIN, SERUM 7.4 g/dL (6.0-8.3); URIC ACID 3.9 mg/dL (2.6-7.2)
[2021-01-12] MEDS: INSULIN HUMULIN R 100 UNIT/ML 3ML SQ SCH ×4 (05:36→20:51)
[2021-01-12] MEDS: LEVOTHYROXINE 100 MCG TABLET PO SCH (06:32)
[2021-01-12 08:08] VITALS: BP 129/54
[2021-01-12] MEDS: Vitamin B Complex/Vit C/Folic Acid PO SCH (08:52)
[2021-01-12] MEDS: FAMOTIDINE/PF 20 MG/2 ML VIAL IV SCH (08:52)
[2021-01-12] MEDS: ASPIRIN 81MG TAB.CHEW PO SCH (08:52)
[2021-01-12] MEDS: CLOPIDOGREL BISULFATE 75 MG TAB PO SCH (08:53)
[2021-01-12 11:32] VITALS: BP 145/59
[2021-01-12 16:40] VITALS: BP 136/58
[2021-01-12] MEDS: VANCOMYCIN 1GM+NS 250ML 250 ML IV SCH (18:37)
[2021-01-12 19:48] VITALS: BP 157/53
[2021-01-12] MEDS: INSULIN GLARGINE 100 UNITS/ML 10 ML VIAL SQ SCH (20:51)
[2021-01-12 23:19] VITALS: BP 132/54
[2021-01-13 03:55] VITALS: BP 127/54
[2021-01-13 05:02] LABS: BASOPHILS % (AUTO) 0.6 % (0.0-5.0); HEMATOCRIT 35.4 % (36-48); LYMPHOCYTES % (AUTO) 34.2 % (21.0-51.0); MEAN CORPUSCULAR HEMOGLOBIN 28.6 pg (27.0-33.0); MEAN CORPUSCULAR HGB CONC 32.8 g/dL (32.0-36.0); MEAN CORPUSCULAR VOLUME 87.4 fL (79-99); MONOCYTES % (AUTO) 6.6 % (3.0-13.0); NEUTROPHILS % (AUTO) 56.2 % (40.0-77.0); PLATELET COUNT (AUTO) 199 K/uL (130-400); RED BLOOD CELL COUNT(AUTO) 4.05 MIL/uL (4.00-5.50); RED CELL DISTRIBUTION WIDTH 14.1 % (11.0-15.5); WHITE BLOOD COUNT (AUTO) 8.4 K/uL (4.8-10.8)
[2021-01-13 05:25] LABS: ALBUMIN 3.1 g/dL (3.5-5.0); BILIRUBIN,TOTAL 0.3 mg/dL (0.2-1.0); POTASSIUM 3.4 mmol/L (3.5-5.1)
[2021-01-13] MEDS: INSULIN HUMULIN R 100 UNIT/ML 3ML SQ SCH ×3 (05:45→18:41)
[2021-01-13] MEDS: LEVOTHYROXINE 100 MCG TABLET PO SCH (06:04)
[2021-01-13] MEDS: ZOSYN 3.375GM+NS 50ML 50 ML IV SCH ×2 (06:04→13:58)
[2021-01-13 08:48] VITALS: BP 185/60
[2021-01-13 09:12] VITALS: BP 127/44
[2021-01-13] MEDS: Vitamin B Complex/Vit C/Folic Acid PO SCH (11:18)
[2021-01-13] MEDS: ASPIRIN 81MG TAB.CHEW PO SCH (11:18)
[2021-01-13] MEDS: FAMOTIDINE/PF 20 MG/2 ML VIAL IV SCH (11:19)
[2021-01-13] MEDS: CLOPIDOGREL BISULFATE 75 MG TAB PO SCH (11:19)
[2021-01-13 12:14] VITALS: BP 169/63
[2021-01-13] MEDS ORDERED: LISINOPRIL 20 MG TABLET PO SCH (16:45)
[2021-01-13 17:29] VITALS: BP 122/54
[2021-01-14] MEDS ORDERED: LISINOPRIL 20 MG TABLET PO SCH (09:00)
== END 2021-01-13 19:25 | disposition home or self-care (01) | DRG 603 ==
LOC: EDH 18:18 → EDHIP 21:35 → 3DH 01-11 03:49
PROVIDERS: ADMIT Internal Medicine; ATTEND Internal Medicine
DX: L03.116 Cellulitis of left lower limb (principal); N17.9 Acute kidney failure, unspecified; E11.22 Type 2 diabetes mellitus with diabetic chronic kidney disease; N18.9 Chronic kidney disease, unspecified; L03.032 Cellulitis of left toe; E03.9 Hypothyroidism, unspecified; E11.649 Type 2 diabetes mellitus with hypoglycemia without coma; E78.5 Hyperlipidemia, unspecified; I12.9 Hypertensive chronic kidney disease with stage 1 through stage 4 chronic kidney disease, or unspecified chronic kidney disease; L03.031 Cellulitis of right toe; L97.519 Non-pressure chronic ulcer of other part of right foot with unspecified severity; E11.621 Type 2 diabetes mellitus with foot ulcer; D63.8 Anemia in other chronic diseases classified elsewhere; D50.9 Iron deficiency anemia, unspecified; E11.69 Type 2 diabetes mellitus with other specified complication; Z89.412 Acquired absence of left great toe; Z83.3 Family history of diabetes mellitus; Z82.0 Family history of epilepsy and other diseases of the nervous system; Z82.49 Family history of ischemic heart disease and other diseases of the circulatory system
CPT/HCPCS: 36415; 71045; 73630; 73718; 76770; 80053; 81001; 82728; 82948; 83036; 83540; 83550; 83605; 84100; 84484; 84550; 85025; 85610; 85651; 85730; 86140; 87040; 87070; 93005; G0378; J1815; J2543; J3370; J3490; J7070

== ENCOUNTER 2022-03-09 16:57 | Emergency (ER) | payer OTHER ==
[~2022-03-09] VITALS: Ht 167.6 cm; Wt 75.7 kg
[~2022-03-09 16:57] MED LIST changes: +ASPI-1443 PO; +CLOP75TA32 PO
[2022-03-09] MEDS ORDERED: ACETAMINOPHEN WITH CODEINE 1 TAB TAB PO ONE (19:00)
[2022-03-09] MEDS ORDERED: NAPR220T57 PO (21:11)
[2022-03-09 21:30] VITALS: BP 121/55
== END 2022-03-09 21:44 | disposition home or self-care (01) ==
LOC: EDH 16:57
DX: S32.501A Unspecified fracture of right pubis, initial encounter for closed fracture (principal); E11.9 Type 2 diabetes mellitus without complications; E78.00 Pure hypercholesterolemia, unspecified; I10 Essential (primary) hypertension; Z79.899 Other long term (current) drug therapy; Z79.82 Long term (current) use of aspirin; Z79.84 Long term (current) use of oral hypoglycemic drugs; Z98.890 Other specified postprocedural states; W01.0XXA Fall on same level from slipping, tripping and stumbling without subsequent striking against object, initial encounter; Y93.89 Activity, other specified; Y92.89 Other specified places as the place of occurrence of the external cause; Y99.8 Other external cause status
CPT/HCPCS: 72192; 73503; 73552

== ENCOUNTER 2023-05-06 00:30 | Emergency (ER) | payer OTHER ==
[~2023-05-06] VITALS: Ht 162.6 cm; Wt 74.8 kg
[~2023-05-06 00:30] MED LIST changes: +NAPR220T57 PO
[2023-05-06] MEDS ORDERED: TETANUS/DIPHTHERIA TOXOID [ADULT] 0.5 ML VIAL IM ONE (01:30)
[2023-05-06] MEDS ORDERED: AMOX/CLAV 875/125MG TAB PO ONE (01:30)
[2023-05-06 01:46] VITALS: BP 142/62; PULSE 78; RESP 16; O2SAT 97
[2023-05-06] MEDS ORDERED: AMOX-427 PO (01:46)
== END 2023-05-06 02:16 | disposition home or self-care (01) ==
LOC: EDH 00:30
DX: S61.252A Open bite of right middle finger without damage to nail, initial encounter (principal); I10 Essential (primary) hypertension; E03.9 Hypothyroidism, unspecified; E11.9 Type 2 diabetes mellitus without complications; Z79.82 Long term (current) use of aspirin; Z79.899 Other long term (current) drug therapy; Z95.5 Presence of coronary angioplasty implant and graft; W53.11XA Bitten by rat, initial encounter; Y93.89 Activity, other specified; Y92.89 Other specified places as the place of occurrence of the external cause; Y99.8 Other external cause status
CPT/HCPCS: 90471; 90714